=== PATIENT | male | born 1975 | race Caucasian/White ===

== ENCOUNTER → 2021-02-24 | Outpatient (CLI) | payer BC ==
[2021-02-24 14:30] LABS: HCT 44.4 % (39.6-50.0); HGB 14.4 g/dL (13.0-17.0); MCH 29.4 pg (27.0-32.0); MCHC 32.4 g/dL (32.0-37.0); MCV 90.6 fL (80.0-97.0); Mean Platelet Volume 9.9 fL (9.5-12.2); Platelet Count 162 X 10*3/uL (140-440); RDW 12.4 % (11.5-14.5); WBC 4.26 X 10*3/uL (4.50-10.00)
[2021-02-24 16:25] LABS: ALT 73 U/L (10-49); AST 44 U/L (14-35); Albumin 4.6 g/dL (3.8-4.9); Albumin/Globulin Ratio 1.73 (1.60-3.17); Alkaline Phosphatase 30 U/L (41-126); BUN/Creat Ratio 12.69 Ratio (12.00-20.00); Bilirubin, Conjugated <0.20 mg/dL (0.20-0.40); Blood Urea Nitrogen 15.1 mg/dL (9.0-27.0); Calcium 9.9 mg/dL (8.7-10.3); Carbon Dioxide 25.7 mmol/L (20.0-27.5); Chloride 98 mmol/L (96-109); Chol/HDL Ratio 4.58 Ratio; Creatine Kinase 221 U/L (35-257); Globulin 2.7 g/dL (1.6-3.3); Glucose 121 mg/dL (70-110); LDL Cholesterol,Calculated 69.9 mg/dL (0.0-131.0); Non-African American GFR(CKD) 73.3 (60.0-200.0); Potassium 4.2 mmol/L (3.5-5.5); Sodium 138 mmol/L (135-145); Total Protein 7.3 g/dL (6.2-8.2)
== END | disposition home or self-care (01) ==
LOC: LABWHC1 10:32
PROVIDERS: ATTEND Internal Medicine Cardiovascular Disease
DX: E78.2 Mixed hyperlipidemia (principal); G47.33 Obstructive sleep apnea (adult) (pediatric); I11.0 Hypertensive heart disease with heart failure; I47.1 Supraventricular tachycardia; I50.32 Chronic diastolic (congestive) heart failure; R94.5 Abnormal results of liver function studies
CPT/HCPCS: 36415; 80053; 80061; 82248; 82550; 84443; 85027

== ENCOUNTER → 2021-08-27 | Outpatient (CLI) | payer BC ==
[2021-08-27 20:26] LABS: ALT 73 U/L (10-49); AST 44 U/L (14-35); Albumin 4.9 g/dL (3.8-4.9); Albumin/Globulin Ratio 1.75 (1.60-3.17); Alkaline Phosphatase 26 U/L (41-126); Bilirubin, Conjugated <0.20 mg/dL (0.20-0.40); Creatine Kinase 243 U/L (35-257); Globulin 2.8 g/dL (1.6-3.3); Total Protein 7.7 g/dL (6.2-8.2)
== END | disposition home or self-care (01) ==
LOC: LABWHC1 10:07
PROVIDERS: ATTEND Internal Medicine Cardiovascular Disease
DX: I25.118 Atherosclerotic heart disease of native coronary artery with other forms of angina pectoris (principal); E78.2 Mixed hyperlipidemia; R94.5 Abnormal results of liver function studies
CPT/HCPCS: 36415; 80061; 80076; 82550; 83721

== ENCOUNTER → 2021-12-31 | Outpatient (CLI) | payer BC ==
[2021-12-31 18:07] LABS: MCH 29.3 pg (27.0-32.0); MCHC 32.6 g/dL (32.0-37.0); Mean Platelet Volume 9.7 fL (9.5-12.2); NRBC Per 100 WBC 0 /100 WBCS (0.0-0.0); Platelet Count 179 X 10*3/uL (140-440); RBC 4.78 X 10*6/uL (4.40-5.60); RDW 13.2 % (11.5-14.5); WBC 4.92 X 10*3/uL (4.50-10.00)
[2021-12-31 18:42] LABS: ALT 70 U/L (10-49); AST 49 U/L (14-35); African American GFR (CKD) 85.3 (60.0-200.0); Albumin 4.8 g/dL (3.8-4.9); Alkaline Phosphatase 30 U/L (41-126); BUN/Creat Ratio 13.31 Ratio (12.00-20.00); Blood Urea Nitrogen 15.7 mg/dL (9.0-27.0); Calcium 10.1 mg/dL (8.7-10.3); Carbon Dioxide 28.1 mmol/L (20.0-27.5); Chloride 95 mmol/L (96-109); Chol/HDL Ratio 3.12 Ratio; Creatine Kinase 483 U/L (35-257); Glucose 130 mg/dL (70-110); LDL Cholesterol,Calculated 20.8 mg/dL (0.0-131.0); Non-African American GFR(CKD) 73.6 (60.0-200.0); Potassium 4.5 mmol/L (3.5-5.5); Sodium 135 mmol/L (135-145); Total Protein 7.8 g/dL (6.2-8.2)
== END | disposition home or self-care (01) ==
LOC: LABWHC1 12:34
PROVIDERS: ATTEND Internal Medicine Cardiovascular Disease
DX: E78.2 Mixed hyperlipidemia (principal); I11.9 Hypertensive heart disease without heart failure; I25.118 Atherosclerotic heart disease of native coronary artery with other forms of angina pectoris; I47.2 Ventricular tachycardia
CPT/HCPCS: 36415; 80053; 80061; 82550; 83036; 84443; 85027

== ENCOUNTER → 2023-03-22 | Outpatient (CLI) | payer BC ==
[2023-03-22 14:57] LABS: HCT 42.6 % (39.6-50.0); HGB 14.4 g/dL (13.0-17.0); MCH 29.7 pg (27.0-32.0); MCHC 33.8 g/dL (32.0-37.0); MCV 87.8 FL (80.0-97.0); Mean Platelet Volume 9.2 FL (9.5-12.2); NRBC Per 100 WBC 0 X 10*3/uL (0.00-0.01); Platelet Count 164 X 10*3/uL (140-440); RBC 4.85 X 10*6/uL (4.40-5.60); RDW 12.4 % (11.5-14.5)
[2023-03-22 15:09] LABS: Creatine Kinase 155 U/L (35-257)
[2023-03-22 15:10] LABS: ALT 76 U/L (10-49); AST 50 U/L (14-35); Albumin 4.6 g/dL (3.8-4.9); Alkaline Phosphatase 27 U/L (41-126); Blood Urea Nitrogen 12.5 mg/dL (9.0-27.0); Carbon Dioxide 28.6 mmol/L (21.6-31.8); Chloride 99 mmol/L (96-109); Chol/HDL Ratio 1.74 Ratio; GGT 94 U/L (0-73); Glucose 134 mg/dL (70-110); LDH 179 U/L (120-246); LDL Cholesterol,Calculated 3.4 mg/dL (0.0-131.0); Phosphorus 2.4 mg/dL (2.4-5.1); Potassium 4.2 mmol/L (3.5-5.5); Sodium 138 mmol/L (135-145); Total Bilirubin 0.5 mg/dL (0.3-1.2); Total Protein 7.3 g/dL (6.2-8.2); Uric Acid 8.3 mg/dL (3.7-8.7)
== END | disposition home or self-care (01) ==
LOC: LABWHC1 09:53
PROVIDERS: ATTEND Internal Medicine Cardiovascular Disease
DX: I10 Essential (primary) hypertension (principal); E78.2 Mixed hyperlipidemia; R00.2 Palpitations
CPT/HCPCS: 36415; 80051; 80061; 82040; 82247; 82550; 82565; 82947; 82977; 83036; 83615; 83735; 84075; 84100; 84155; 84443; 84450; 84460; 84520; 84550; 85027